=== PATIENT | female | born 1975 | race Two or more races ===

== ENCOUNTER → 2017-02-16 06:01 | Outpatient (CLI) | payer OTHER ==
[~2017-02-16 06:01] MED LIST: MONONESSA1 TAB
== END | disposition home or self-care (01) ==
LOC: LAB 06:01
DX: Z00.00 Encounter for general adult medical examination without abnormal findings (principal)

== ENCOUNTER → 2017-05-05 | Outpatient (CLI) | payer OTHER ==
[~2017-05-05] VITALS: Ht 152.4 cm; Wt 52.2 kg
== END | disposition home or self-care (01) ==
LOC: PPHC 09:38
DX: R13.19 Other dysphagia (principal)

== ENCOUNTER 2017-06-06 14:29 | Outpatient (CLI) | payer OTHER | END 2017-06-06 14:36 | disposition home or self-care (01) | LOC: RAD 14:29 | DX: R10.9 Unspecified abdominal pain (principal) ==

== ENCOUNTER → 2017-06-06 | Outpatient (CLI) | payer OTHER | END | disposition home or self-care (01) | LOC: PPHC 08:36 | DX: R10.84 Generalized abdominal pain (principal) ==

== ENCOUNTER → 2017-06-07 06:27 | Outpatient (CLI) | payer OTHER | END | disposition home or self-care (01) | LOC: LAB 06:27 | DX: R10.9 Unspecified abdominal pain (principal); R10.2 Pelvic and perineal pain ==

== ENCOUNTER 2017-06-07 09:16 | Outpatient (CLI) | payer OTHER | END 2017-06-07 09:24 | disposition home or self-care (01) | LOC: RX STUDY 09:16 | DX: R13.10 Dysphagia, unspecified (principal) ==

== ENCOUNTER → 2017-06-12 | Outpatient (CLI) | payer OTHER | END | disposition home or self-care (01) | LOC: PPHC 10:35 | DX: R10.32 Left lower quadrant pain (principal) ==

== ENCOUNTER 2017-06-15 07:46 | Outpatient (CLI) | payer OTHER | END 2017-06-15 08:28 | disposition home or self-care (01) | LOC: SONOGRAMA 07:46 → MAMO-SONO 08:15 → SONOGRAMA 08:28 | DX: R13.10 Dysphagia, unspecified (principal) ==

== ENCOUNTER → 2017-07-10 | Outpatient (CLI) | payer OTHER | END | disposition home or self-care (01) | LOC: TOM 07:30 | DX: R10.9 Unspecified abdominal pain (principal) ==

== ENCOUNTER 2017-11-14 13:55 | Outpatient (CLI) | payer OTHER | END 2017-11-14 14:03 | disposition home or self-care (01) | LOC: MAMO-SONO 13:55 | DX: Z12.31 Encounter for screening mammogram for malignant neoplasm of breast (principal) ==

== ENCOUNTER 2018-04-25 10:18 | Outpatient (CLI) | payer OTHER | END 2018-04-25 10:24 | disposition home or self-care (01) | LOC: LAB 10:18 | DX: J11.1 Influenza due to unidentified influenza virus with other respiratory manifestations (principal) ==

== ENCOUNTER 2018-08-02 12:19 | Outpatient (CLI) | payer OTHER | END 2018-08-02 15:00 | disposition home or self-care (01) | LOC: LAB 12:19 | DX: J11.1 Influenza due to unidentified influenza virus with other respiratory manifestations (principal); J11.81 Influenza due to unidentified influenza virus with encephalopathy ==

== ENCOUNTER 2018-12-26 14:03 | Outpatient (CLI) | payer OTHER | END 2018-12-26 14:07 | disposition home or self-care (01) | LOC: RAD 14:03 | DX: Z87.442 Personal history of urinary calculi (principal) ==

== ENCOUNTER 2018-12-26 14:55 | Outpatient (CLI) | payer OTHER | END 2018-12-26 15:00 | disposition home or self-care (01) | LOC: LAB 14:55 | DX: R10.2 Pelvic and perineal pain (principal); N39.0 Urinary tract infection, site not specified ==

== ENCOUNTER 2018-12-30 08:10 | Outpatient (CLI) | payer OTHER | END 2018-12-30 08:15 | disposition home or self-care (01) | LOC: MAMO-SONO 08:10 | DX: N64.4 Mastodynia (principal) ==

== ENCOUNTER → 2019-02-06 06:24 | Outpatient (CLI) | payer OTHER | END | disposition home or self-care (01) | LOC: LAB 06:24 | DX: N91.2 Amenorrhea, unspecified (principal); N92.1 Excessive and frequent menstruation with irregular cycle; E03.8 Other specified hypothyroidism; D63.8 Anemia in other chronic diseases classified elsewhere; N30.90 Cystitis, unspecified without hematuria; E78.00 Pure hypercholesterolemia, unspecified; R73.09 Other abnormal glucose ==

== ENCOUNTER 2019-09-30 12:53 | Outpatient (CLI) | payer OTHER | END 2019-09-30 15:00 | disposition home or self-care (01) | LOC: LAB 12:53 | DX: Z20.828 Contact with and (suspected) exposure to other viral communicable diseases (principal); Z11.59 Encounter for screening for other viral diseases ==

== ENCOUNTER 2019-11-07 05:00 | Outpatient (CLI) | payer OTHER | END 2019-11-07 15:01 | disposition home or self-care (01) | LOC: PPH VACUNA 05:00 | DX: Z23 Encounter for immunization (principal) ==

== ENCOUNTER 2020-01-12 07:51 | Emergency (ER) | payer OTHER ==
[~2020-01-12] VITALS: Ht 162.6 cm; Wt 49.9 kg
[2020-01-12] MEDS ORDERED: VITAMIN D-40010 MCG PO (08:03)
[2020-01-12] MEDS ORDERED: KETO10TA2 PO (13:42)
[2020-01-12] MEDS ORDERED: ZITHROMAX500 MG PO (13:42)
== END 2020-01-12 13:48 | disposition home or self-care (01) ==
LOC: ER 07:51
DX: N20.1 Calculus of ureter (principal); K80.80 Other cholelithiasis without obstruction; B96.0 Mycoplasma pneumoniae [M. pneumoniae] as the cause of diseases classified elsewhere; R10.32 Left lower quadrant pain; Z03.818 Encounter for observation for suspected exposure to other biological agents ruled out

== ENCOUNTER 2020-02-03 16:38 | Outpatient (CLI) | payer OTHER ==
[~2020-02-03 16:38] MED LIST changes: +KETO10TA2 PO; +VITAMIN D-40010 MCG PO; +ZITHROMAX500 MG PO
== END 2020-02-03 18:00 | disposition home or self-care (01) ==
LOC: PPH VACUNA 16:38
DX: Z23 Encounter for immunization (principal)

== ENCOUNTER 2020-04-10 09:09 | Outpatient (CLI) | payer OTHER | END 2020-04-10 15:00 | disposition home or self-care (01) | LOC: LAB 09:09 | DX: Z20.828 Contact with and (suspected) exposure to other viral communicable diseases (principal); Z11.59 Encounter for screening for other viral diseases ==

== ENCOUNTER 2020-11-12 08:00 | Outpatient (CLI) | payer OTHER | END 2020-11-12 08:30 | disposition home or self-care (01) | LOC: PPH VACUNA 08:00 | PROVIDERS: ATTEND Emergency Medicine Pediatric Emergency Medicine | DX: Z23 Encounter for immunization (principal) ==

== ENCOUNTER 2020-11-25 16:45 | Outpatient (CLI) | payer OTHER | END 2020-11-25 16:50 | disposition home or self-care (01) | LOC: PPH VACUNA 16:45 | PROVIDERS: ATTEND Emergency Medicine Pediatric Emergency Medicine | DX: Z23 Encounter for immunization (principal) ==

== ENCOUNTER → 2020-12-16 | Outpatient (CLI) | payer OTHER | END | disposition home or self-care (01) | LOC: MAMO-SONO 10:45 | PROVIDERS: ATTEND Radiology Diagnostic Radiology | DX: N64.89 Other specified disorders of breast (principal); Z12.31 Encounter for screening mammogram for malignant neoplasm of breast ==

== ENCOUNTER 2021-07-22 10:53 | Outpatient (CLI) | payer OTHER | END 2021-07-22 10:56 | disposition home or self-care (01) | LOC: RAD 10:53 | PROVIDERS: ATTEND Physical Medicine & Rehabilitation | DX: M76.61 Achilles tendinitis, right leg (principal) ==

== ENCOUNTER → 2021-09-02 06:31 | Outpatient (CLI) | payer OTHER | END | disposition home or self-care (01) | LOC: LAB 06:31 | PROVIDERS: ATTEND Internal Medicine Sports Medicine | DX: E55.9 Vitamin D deficiency, unspecified (principal); D64.9 Anemia, unspecified; E11.9 Type 2 diabetes mellitus without complications; E78.2 Mixed hyperlipidemia; I10 Essential (primary) hypertension; E03.8 Other specified hypothyroidism ==

== ENCOUNTER 2021-11-09 10:21 | Outpatient (CLI) | payer OTHER | END 2021-11-09 10:26 | disposition home or self-care (01) | LOC: PPH VACUNA 10:21 | PROVIDERS: ATTEND Emergency Medicine Pediatric Emergency Medicine | DX: Z23 Encounter for immunization (principal) ==

== ENCOUNTER 2022-07-20 10:38 | Outpatient (CLI) | payer OTHER | END 2022-07-20 10:44 | disposition home or self-care (01) | LOC: MAMO-SONO 10:38 | PROVIDERS: ATTEND General Practice | DX: N64.4 Mastodynia (principal); Z12.31 Encounter for screening mammogram for malignant neoplasm of breast ==

== ENCOUNTER 2022-07-21 06:16 | Outpatient (CLI) | payer OTHER | END 2022-07-21 08:28 | disposition home or self-care (01) | LOC: LAB 06:16 | PROVIDERS: ATTEND General Practice | DX: Z00.00 Encounter for general adult medical examination without abnormal findings (principal); E78.5 Hyperlipidemia, unspecified; E55.9 Vitamin D deficiency, unspecified; R42 Dizziness and giddiness; R10.9 Unspecified abdominal pain ==

== ENCOUNTER 2022-09-19 06:14 | Outpatient (CLI) | payer OTHER ==
[~2022-09-19 06:14] MED LIST changes: +DICLOFENAC POTA50 MG PO; +METAXALONE800 MG PO
== END 2022-09-19 06:15 | disposition home or self-care (01) ==
LOC: LAB 06:14
PROVIDERS: ATTEND Obstetrics & Gynecology Maternal & Fetal Medicine
DX: N91.2 Amenorrhea, unspecified (principal); E03.9 Hypothyroidism, unspecified

== ENCOUNTER 2022-09-28 13:54 | Outpatient (CLI) | payer OTHER | END 2022-09-28 13:59 | disposition home or self-care (01) | LOC: SONOGRAMA 13:54 | PROVIDERS: ATTEND Obstetrics & Gynecology Maternal & Fetal Medicine | DX: R10.2 Pelvic and perineal pain (principal); D25.9 Leiomyoma of uterus, unspecified ==

== ENCOUNTER 2023-10-25 10:08 | Outpatient (CLI) | payer OTHER | END 2023-10-25 11:29 | disposition home or self-care (01) | LOC: LAB 10:08 | PROVIDERS: ATTEND Preventive Medicine Occupational Medicine | DX: J11.1 Influenza due to unidentified influenza virus with other respiratory manifestations (principal); Z20.828 Contact with and (suspected) exposure to other viral communicable diseases ==

== ENCOUNTER 2023-11-28 06:30 | Outpatient (CLI) | payer OTHER ==
[2023-11-28 07:36] LABS: HEMATOCRIT 38.6 % (36.0-45.00); HEMOGLOBIN 13.3 g/dL (12.0-15.00); MEAN CELL VOLUME 92.7 fL (80.00-100.00); MEAN CORPUSCULAR HGB CONC 34.5 g/dl (32.0-36.0); PLATELET COUNT 183 K/uL (150-450); RED BLOOD COUNT 4.16 M/uL (4.00-6.00)
== END 2023-11-28 06:32 | disposition home or self-care (01) ==
LOC: LAB 06:30
PROVIDERS: ATTEND Physical Medicine & Rehabilitation
DX: R50.9 Fever, unspecified (principal); J06.9 Acute upper respiratory infection, unspecified; R09.81 Nasal congestion; A49.3 Mycoplasma infection, unspecified site; Z11.59 Encounter for screening for other viral diseases; U07.1 COVID-19

== ENCOUNTER → 2023-12-10 06:39 | Outpatient (CLI) | payer OTHER ==
[2023-12-10 07:40] LABS: URINE APPEARANCE Clear; URINE BILIRRUBIN Negative (NEGATIVE); URINE BLOOD Negative; URINE COLOR Yellow; URINE GLUCOSE Negative (NEGATIVE); URINE KETONE Negative (NEGATIVE); URINE LEUKOCYTE Moderate; URINE NITRATE Negative; URINE PROTEIN Negative (NEGATIVE); URINE UROBILINOGEN 0.2 E.U./dl
[2023-12-10 07:44] LABS: URINE BACTERIA 31.4 uL (0.0-1933); URINE EPITHELIAL CELLS 4.4 uL (0.0-38.8); URINE RBC 15.7 uL (0.0-20.8); URINE WBC 30.4 uL (0.0-23.2)
[2023-12-10 07:59] LABS: HEMATOCRIT 37.9 % (36.0-45.00); MEAN CORPUSCULAR HEMOGLOBIN 31.8 pg (27.00-32.0); MEAN CORPUSCULAR HGB CONC 34.2 g/dl (32.0-36.0); PLATELET COUNT 568 K/uL (150-450); RED BLOOD COUNT 4.08 M/uL (4.00-6.00); RED CELL DISTRIBUTION WIDTH 13.5 % (11.5-14.5)
[2023-12-10 08:38] LABS: BILIRUBIN TOTAL 0.39 mg/dL (0.3-1.2); CALCIUM 9.3 mg/dL (8.5-10.1); CHOL HDL RATIO 3.8 (0-5.0); CREATININE SERUM 0.73 mg/dL (0.55-1.02); GFR 86.21; GLOBULINA 3.8 G/DL (2.4-3.5); POTASSIUM 4.3 mEq/L (3.5-5.1); TOTAL PROTEIN 7.8 gm/dL (6.4-8.2); TSH 1.81 uIU/mL (0.358-3.74)
== END | disposition home or self-care (01) ==
LOC: LAB 06:39
PROVIDERS: ATTEND Internal Medicine
DX: I11.9 Hypertensive heart disease without heart failure (principal); E11.9 Type 2 diabetes mellitus without complications; E78.2 Mixed hyperlipidemia; E03.9 Hypothyroidism, unspecified

== ENCOUNTER 2023-12-11 10:26 | Outpatient (CLI) | payer OTHER | END 2023-12-11 10:32 | disposition home or self-care (01) | LOC: MAMO-SONO 10:26 | PROVIDERS: ATTEND Physical Medicine & Rehabilitation | DX: N36.0 Urethral fistula (principal) ==

== ENCOUNTER 2023-12-24 13:30 | Outpatient (CLI) | payer OTHER | END 2023-12-24 13:40 | disposition home or self-care (01) | LOC: PPH VACUNA 13:30 | PROVIDERS: ATTEND Emergency Medicine Pediatric Emergency Medicine | DX: Z23 Encounter for immunization (principal) ==

== ENCOUNTER 2024-01-09 06:10 | Outpatient (CLI) | payer OTHER ==
[2024-01-09 07:52] LABS: HEMATOCRIT 39.3 % (36.0-45.00); HEMOGLOBIN 12.9 g/dL (12.0-15.00); MEAN CELL VOLUME 95.4 fL (80.00-100.00); MEAN CORPUSCULAR HEMOGLOBIN 31.3 pg (27.00-32.0); MEAN CORPUSCULAR HGB CONC 32.9 g/dl (32.0-36.0); PLATELET COUNT 321 K/uL (150-450); RED BLOOD COUNT 4.12 M/uL (4.00-6.00); RED CELL DISTRIBUTION WIDTH 13.3 % (11.5-14.5)
[2024-01-09 08:34] LABS: ALBUMIN 4.1 gm/dL (3.4-5.0); BILIRUBIN TOTAL 0.39 mg/dL (0.3-1.2); CALCIUM 9.2 mg/dL (8.5-10.1); CREATININE SERUM 0.75 mg/dL (0.55-1.02); GFR 83.19; GLOBULINA 3.6 G/DL (2.4-3.5); POTASSIUM 4.1 mEq/L (3.5-5.1); TOTAL PROTEIN 7.7 gm/dL (6.4-8.2)
== END 2024-01-09 06:15 | disposition home or self-care (01) ==
LOC: LAB 06:10
PROVIDERS: ATTEND Internal Medicine Cardiovascular Disease
DX: A90 Dengue fever [classical dengue] (principal); D69.6 Thrombocytopenia, unspecified

== ENCOUNTER 2024-01-14 08:23 | Outpatient (CLI) | payer OTHER | END 2024-01-14 08:24 | disposition home or self-care (01) | LOC: NUCLEAR 08:23 | PROVIDERS: ATTEND Internal Medicine | DX: R00.2 Palpitations (principal); R07.1 Chest pain on breathing ==

== ENCOUNTER → 2024-01-15 | Outpatient (CLI) | payer OTHER | END | disposition home or self-care (01) | LOC: RAD 12:56 | PROVIDERS: ATTEND Internal Medicine | DX: R07.9 Chest pain, unspecified (principal) ==

== ENCOUNTER 2024-03-11 07:41 | Outpatient (CLI) | payer OTHER | END 2024-03-11 07:42 | disposition home or self-care (01) | LOC: NUCLEAR 07:41 | PROVIDERS: ATTEND Internal Medicine | DX: R00.2 Palpitations (principal); R07.1 Chest pain on breathing ==

== ENCOUNTER 2024-04-04 06:12 | Outpatient (CLI) | payer OTHER ==
[2024-04-04 07:30] LABS: URINE APPEARANCE Turbid; URINE BILIRRUBIN Negative (NEGATIVE); URINE BLOOD Negative; URINE COLOR Yellow; URINE GLUCOSE Negative (NEGATIVE); URINE KETONE Negative (NEGATIVE); URINE LEUKOCYTE Negative; URINE NITRATE Negative; URINE PROTEIN Negative (NEGATIVE)
[2024-04-04 07:31] LABS: URINE BACTERIA 8.5 uL (0.0-1933); URINE EPITHELIAL CELLS 4.9 uL (0.0-38.8); URINE RBC 36.6 uL (0.0-20.8); URINE WBC 6.3 uL (0.0-23.2)
[2024-04-04 07:38] LABS: HEMATOCRIT 38.2 % (36.0-45.00); HEMOGLOBIN 13.3 g/dL (12.0-15.00); MEAN CELL VOLUME 93.4 fL (80.00-100.00); MEAN CORPUSCULAR HEMOGLOBIN 32.5 pg (27.00-32.0); MEAN CORPUSCULAR HGB CONC 34.8 g/dl (32.0-36.0); PLATELET COUNT 393 K/uL (150-450); RED CELL DISTRIBUTION WIDTH 12.7 % (11.5-14.5)
[2024-04-04 07:58] LABS: ERYTHROCYTE SEDIMENTATION RATE 23 mm/hr
[2024-04-04 09:12] LABS: ALKALINE PHOSPHATASE 100 U/L (50-136); ALT/SGPT 36 U/L (12-78); ANION GAP 8 (10.0-20.0); AST/SGOT 16 U/L (15-37); BILIRUBIN TOTAL 0.37 mg/dL (0.3-1.2); BLOOD UREA NITROGEN 15 mg/dL (7-18); BUN CREA RATIO 23 (7.0-25.0); CALCIUM 9.3 mg/dL (8.5-10.1); CARBON DIOXIDE 31 mEq/L (21-32); CHLORIDE 105 mmol/L (98-107); CHOLESTEROL 239 mg/dL (0-200); CREATININE SERUM 0.66 mg/dL (0.55-1.02); FREE TRIODOTIRONINE 3.09 pg/ml (2.18-3.98); GFR 96.41; GLOBULINA 3.6 G/DL (2.4-3.5); GLUCOSE FASTING 84 mg/dL (65-100); HDL 48 mg/dl (40-60); LDL 161 mg/dl (0-130); OSMOLALITY SERUM 279 MOSM/KG (275-295); SODIUM 140 mmol/L (136-145); T4 TOTAL 6.23 UG/DL (4.8-13.9); TOTAL PROTEIN 7.6 gm/dL (6.4-8.2); TRIGLYCERIDES 152 mg/dL (0-150); VLDL 30 (0-39)
[2024-04-04 09:17] LABS: C-REACTIVE PROTEIN < 0.29 MG/DL (0.00-0.29)
== END 2024-04-04 06:13 | disposition home or self-care (01) ==
LOC: LAB 06:12
PROVIDERS: ATTEND Internal Medicine
DX: R00.2 Palpitations (principal); E78.9 Disorder of lipoprotein metabolism, unspecified; E55.9 Vitamin D deficiency, unspecified; Z00.00 Encounter for general adult medical examination without abnormal findings; Z12.11 Encounter for screening for malignant neoplasm of colon; Z13.29 Encounter for screening for other suspected endocrine disorder

== ENCOUNTER 2024-04-07 06:20 | Outpatient (CLI) | payer OTHER ==
[2024-04-07 12:47] LABS: ob NEGATIVE (NEGATIVE)
== END 2024-04-07 06:21 | disposition home or self-care (01) ==
LOC: LAB 06:20
PROVIDERS: ATTEND Internal Medicine
DX: E55.9 Vitamin D deficiency, unspecified (principal); R00.2 Palpitations; E78.9 Disorder of lipoprotein metabolism, unspecified; Z13.1 Encounter for screening for diabetes mellitus; Z13.29 Encounter for screening for other suspected endocrine disorder; Z00.00 Encounter for general adult medical examination without abnormal findings; Z12.11 Encounter for screening for malignant neoplasm of colon

== ENCOUNTER 2024-05-27 12:33 | Outpatient (CLI) | payer OTHER | END 2024-05-27 12:37 | disposition home or self-care (01) | LOC: RAD 12:33 | PROVIDERS: ATTEND Physical Medicine & Rehabilitation | DX: N20.0 Calculus of kidney (principal) ==

== ENCOUNTER 2024-05-28 15:12 | Outpatient (CLI) | payer OTHER | END 2024-05-28 15:14 | disposition home or self-care (01) | LOC: SONOGRAMA 15:12 | PROVIDERS: ATTEND Internal Medicine | DX: R10.2 Pelvic and perineal pain (principal) ==

== ENCOUNTER 2024-06-03 06:12 | Outpatient (CLI) | payer OTHER ==
[2024-06-03 07:07] LABS: PH,URINE 7.5 (5.0-8.0); URINE APPEARANCE Turbid; URINE BILIRRUBIN Negative (NEGATIVE); URINE BLOOD Small; URINE COLOR Yellow; URINE GLUCOSE Negative (NEGATIVE); URINE KETONE Negative (NEGATIVE); URINE LEUKOCYTE Negative; URINE NITRATE Negative; URINE PROTEIN Negative (NEGATIVE)
[2024-06-03 07:08] LABS: URINE BACTERIA 15.9 uL (0.0-1933); URINE EPITHELIAL CELLS 4.1 uL (0.0-38.8); URINE WBC 8.3 uL (0.0-23.2)
[2024-06-03 07:09] LABS: HEMATOCRIT 39.2 % (36.0-45.00); MEAN CELL VOLUME 94.7 fL (80.00-100.00); MEAN CORPUSCULAR HEMOGLOBIN 31.5 pg (27.00-32.0); MEAN CORPUSCULAR HGB CONC 33.2 g/dl (32.0-36.0); PLATELET COUNT 355 K/uL (150-450); RED BLOOD COUNT 4.14 M/uL (4.00-6.00); RED CELL DISTRIBUTION WIDTH 13.2 % (11.5-14.5)
[2024-06-03 07:59] LABS: ALBUMIN 4.1 gm/dL (3.4-5.0); ALKALINE PHOSPHATASE 94 U/L (50-136); ALT/SGPT 23 U/L (12-78); ANION GAP 8 (10.0-20.0); AST/SGOT 17 U/L (15-37); BILIRUBIN TOTAL 0.43 mg/dL (0.3-1.2); BLOOD UREA NITROGEN 12 mg/dL (7-18); BUN CREA RATIO 17 (7.0-25.0); CALCIUM 9.4 mg/dL (8.5-10.1); CARBON DIOXIDE 32 mEq/L (21-32); CHLORIDE 104 mmol/L (98-107); CREATININE SERUM 0.71 mg/dL (0.55-1.02); ERYTHROCYTE SEDIMENTATION RATE 9 mm/hr; FREE TRIODOTIRONINE 3.04 pg/ml (2.18-3.98); GFR 88.62; GLOBULINA 3.4 G/DL (2.4-3.5); GLUCOSE FASTING 90 mg/dL (65-100); HDL 61 mg/dl (40-60); OSMOLALITY SERUM 279 MOSM/KG (275-295); POTASSIUM 3.93 mEq/L (3.5-5.1); SODIUM 140 mmol/L (136-145); T4 TOTAL 6.83 UG/DL (4.8-13.9); TOTAL PROTEIN 7.5 gm/dL (6.4-8.2); TRIGLYCERIDES 164 mg/dL (0-150); VLDL 32 (0-39)
[2024-06-03 08:00] LABS: CHOL HDL RATIO 4.4 (0-5.0); LDL 173 mg/dl (0-130)
[2024-06-03 08:01] LABS: C-REACTIVE PROTEIN < 0.29 MG/DL (0.00-0.29); CHOLESTEROL 267 mg/dL (0-200)
== END 2024-06-03 06:17 | disposition home or self-care (01) ==
LOC: LAB 06:12
PROVIDERS: ATTEND Internal Medicine
DX: R00.2 Palpitations (principal); E78.9 Disorder of lipoprotein metabolism, unspecified; E55.9 Vitamin D deficiency, unspecified; Z00.00 Encounter for general adult medical examination without abnormal findings; Z13.1 Encounter for screening for diabetes mellitus; Z12.11 Encounter for screening for malignant neoplasm of colon; Z13.29 Encounter for screening for other suspected endocrine disorder

== ENCOUNTER 2024-06-04 06:07 | Outpatient (CLI) | payer OTHER ==
[2024-06-04 07:41] LABS: ob NEGATIVE (NEGATIVE)
== END 2024-06-04 06:09 | disposition home or self-care (01) ==
LOC: LAB 06:07
PROVIDERS: ATTEND Internal Medicine
DX: R00.2 Palpitations (principal); E78.9 Disorder of lipoprotein metabolism, unspecified; E55.9 Vitamin D deficiency, unspecified; Z00.00 Encounter for general adult medical examination without abnormal findings; Z13.1 Encounter for screening for diabetes mellitus; Z12.11 Encounter for screening for malignant neoplasm of colon; Z13.29 Encounter for screening for other suspected endocrine disorder

== ENCOUNTER 2024-06-04 08:24 | Outpatient (CLI) | payer OTHER | END 2024-06-04 08:38 | disposition home or self-care (01) | LOC: TOM 08:24 | PROVIDERS: ATTEND Internal Medicine | DX: R10.32 Left lower quadrant pain (principal) ==

== ENCOUNTER 2024-07-08 14:04 | Outpatient (CLI) | payer OTHER | END 2024-07-08 14:10 | disposition home or self-care (01) | LOC: MRI 14:04 | PROVIDERS: ATTEND Internal Medicine | DX: R10.2 Pelvic and perineal pain (principal); N83.292 Other ovarian cyst, left side | CPT/HCPCS: 72196 ==

== ENCOUNTER → 2024-07-29 06:09 | Outpatient (CLI) | payer OTHER ==
[~2024-07-29 06:09] MED LIST changes: +NORFLEX100MG PO
[2024-07-29 07:14] LABS: BASO % 0.4 % (0.1-1.2); EOS # 0.11 (0.04-0.54); LYMPH % 49.1 % (19.3-53.1); MONO # 0.42 (0.24-0.82); MONO % 7.6 % (4.7-12.5); NEUT # 2.24 (1.56-6.13); NEUT % 40.7 % (34.0-71.1); PLATELET COUNT 382 K/uL (163-369); RED CELL DISTRIBUTION WIDTH 12.5 % (11.6-14.4)
[2024-07-29 08:21] LABS: ALBUMIN 4.1 gm/dL (3.4-5.0); BILIRUBIN TOTAL 0.43 mg/dL (0.3-1.2); CALCIUM 9.5 mg/dL (8.5-10.1); CHOL HDL RATIO 2.7 (0-5.0); CREATININE SERUM 0.66 mg/dL (0.55-1.02); GFR 96.41; GLOBULINA 3.5 G/DL (2.4-3.5); POTASSIUM 4.1 mEq/L (3.5-5.1); TOTAL PROTEIN 7.6 gm/dL (6.4-8.2)
== END | disposition home or self-care (01) ==
LOC: LAB 06:09
PROVIDERS: ATTEND Internal Medicine
DX: E78.2 Mixed hyperlipidemia (principal)

== ENCOUNTER 2024-11-07 08:03 | Outpatient (CLI) | payer OTHER | END 2024-11-07 08:05 | disposition home or self-care (01) | LOC: SONOGRAMA 08:03 | PROVIDERS: ATTEND Internal Medicine | DX: N28.1 Cyst of kidney, acquired (principal) ==

== ENCOUNTER 2024-12-09 15:00 | Outpatient (CLI) | payer OTHER | END 2024-12-09 15:10 | disposition home or self-care (01) | LOC: PPH VACUNA 15:00 | PROVIDERS: ATTEND Emergency Medicine Pediatric Emergency Medicine | DX: Z23 Encounter for immunization (principal) ==

== ENCOUNTER 2024-12-23 07:22 | Outpatient (CLI) | payer OTHER | END 2024-12-23 07:23 | disposition home or self-care (01) | LOC: MAMO-SONO 07:22 | PROVIDERS: ATTEND Surgery | DX: N60.11 Diffuse cystic mastopathy of right breast (principal); N60.12 Diffuse cystic mastopathy of left breast ==